=== PATIENT | female | born 1975 | race Caucasian/White ===

== ENCOUNTER → 2016-08-21 | Outpatient (CLI) | payer OTHER ==
[2016-08-22 03:07] LABS: Maple (Box Elder) IgE <0.10 kU/L; Orchard Grs(Cocksfoot) IgE <0.10 kU/L
[2016-08-22 03:08] LABS: Egg White IgE <0.10 kU/L; Peanut IgE <0.10 kU/L
[2016-08-22 03:09] LABS: Ragweed,Common IgE <0.10 kU/L
[2016-08-22 03:10] LABS: Aspergillus fumagatus IgE <0.10 kU/L; Cladosporian herbarum IgE <0.10 kU/L
[2016-08-22 03:11] LABS: Dermato. farinae IgE <0.10 kU/L
[2016-08-22 04:03] LABS: Soybean IgE <0.10 kU/L
[2016-08-22 11:50] LABS: Beef IgE <0.35 kU/L (<0.35); Beef IgE Class CLASS 0; Chicken IgE Class CLASS 0; Egg Yolk IgE Class CLASS 0; Pork IgE Class CLASS 0; Potato IgE <0.35 kU/L (<0.35); Potato IgE Class CLASS 0
[2016-08-22 11:51] LABS: Alternaria alternata IgE <0.35 kU/L (<0.35); Meadow Grs (KY blue) IgE <0.35 kU/L (<0.35); Meadow Grs (KY blue) IgE Class CLASS 0; Ragweed, Giant IgE <0.35 kU/L (<0.35); Ragweed, Giant IgE Class CLASS 0
[2016-08-22 13:34] LABS: Gliadin AB IgA, Deaminated 5 UNITS (<20); Gliadin AB IgG, Deaminated 2 UNITS (<20)
[2016-08-22 16:08] LABS: Mis test requested (Blood) PEA IgE
[2016-08-27 07:18] LABS: Mis test requested (Blood) Celiac Genotyping
== END | disposition home or self-care (01) ==
LOC: LABWHC1 16:24
PROVIDERS: ATTEND Allergy & Immunology
DX: R19.7 Diarrhea, unspecified (principal); K21.9 Gastro-esophageal reflux disease without esophagitis
CPT/HCPCS: 36415; 81376; 81383; 82784; 83516; 86003